=== PATIENT | male | born 1935 | race Caucasian/White ===

== ENCOUNTER 2020-04-03 12:22 | Day surgery (SDC) | payer MEDICARE, BC ==
[2020-04-03] VITALS (7 sets, daily range): BP systolic 131–152; BP diastolic 60–74
[~2020-04-03] VITALS: Ht 177.8 cm; Wt 82.1 kg
[~2020-04-03 12:22] MED LIST: ASPI-611 PO; CEFD300C3 PO; COLC0.6C3 PO; DULO30CA52 PO; FERR-97 PO; GLIM4TAB7 PO; ISOS60TA4 PO; LACT1CAP26 PO; LANS15CA10 PO; LISI1TAB51 PO; METF-950 PO; METO-384 PO; METR-159 PO; SIMV-45 PO
[2020-04-03] MEDS ORDERED: normal saline 1,000 ML IV SCH (12:50)
[2020-04-03] MEDS ORDERED: LORazepam 0.5 MG tablet PO PRN (12:50)
[2020-04-03] MEDS ORDERED: diphenhydrAMINE 25mg capsule PO PRN (12:50)
[2020-04-03] MEDS ORDERED: midazolam 2 mg/2 ml injection ONE (13:55)
[2020-04-03] MEDS ORDERED: iohexol 350MG/ML 100ml bottle IV ONE (13:55)
[2020-04-03] MEDS ORDERED: LIDOcaine 1% (10mg/ml)w/preservative injection 20ml MDV ONE (13:55)
[2020-04-03] MEDS ORDERED: fentaNYL/PF 50MCG/1 ML 2ML syringe ONE (13:55)
[2020-04-03] MEDS ORDERED: heparin 1,000unit/ml 10ml vial 10 ML ONE (14:00)
[2020-04-03] MEDS ORDERED: nitroGLYCERIN-Tridil 50MG/D5W 250 ML IV ONE (14:00)
[2020-04-03] MEDS ORDERED: verapamil 2.5 mg/ml inj IV ONE (14:00)
[2020-04-03] MEDS ORDERED: LISI-604 PO (14:08)
[2020-04-03] MEDS ORDERED: hydrocortisone sod succ/PF 100mg/2ml inj. ONE (14:10)
[2020-04-03] MEDS ORDERED: ISOS60TA4 PO (14:10)
[2020-04-03] MEDS ORDERED: DULO-31 PO (14:12)
[2020-04-03] MEDS ORDERED: COLC0.6T72 PO (14:13)
[2020-04-03] MEDS ORDERED: NITR0.4T51 SL (14:13)
[2020-04-03] MEDS ORDERED: iohexol 350 MG/ML 50ML vial IV ONE ×2 (14:23→14:42)
[2020-04-03] MEDS ORDERED: ondansetron/PF 4mg/2ml inj IV PRN (15:10)
[2020-04-03] MEDS ORDERED: OXAZEpam 15mg capsule PO PRN (15:10)
[2020-04-03] MEDS ORDERED: proCHLORperazine 10 MG/2 ml inj IV PRN (15:10)
== END 2020-04-03 17:00 | disposition home or self-care (01) ==
LOC: SSTAY O 12:22
PROVIDERS: ATTEND Internal Medicine Interventional Cardiology
DX: I34.0 Nonrheumatic mitral (valve) insufficiency (principal); I25.10 Atherosclerotic heart disease of native coronary artery without angina pectoris; E11.40 Type 2 diabetes mellitus with diabetic neuropathy, unspecified; I10 Essential (primary) hypertension; E78.5 Hyperlipidemia, unspecified; Z95.5 Presence of coronary angioplasty implant and graft; M10.9 Gout, unspecified; Z79.84 Long term (current) use of oral hypoglycemic drugs; Z79.82 Long term (current) use of aspirin; Z79.899 Other long term (current) drug therapy; Z88.8 Allergy status to other drugs, medicaments and biological substances; Z87.891 Personal history of nicotine dependence
CPT/HCPCS: 93005; 93458; 99152; C1769; C1894; J1644; J1720; J2001; J2250; J3010; J7030; Q0163; Q9967; 99153; A4620; J3490

== ENCOUNTER 2022-01-27 17:45 | Emergency (ER) | payer MEDICARE, BC ==
[~2022-01-27] VITALS: Ht 175.3 cm; Wt 78.2 kg
[~2022-01-27 17:45] MED LIST changes: -CEFD300C3 PO; -COLC0.6C3 PO; +COLC0.6T72 PO; +DULO-31 PO; -FERR-97 PO; -GLIM4TAB7 PO; -ISOS60TA4 PO; +ISOS60TA71 PO; -LACT1CAP26 PO; -LANS15CA10 PO; +LANS15CA14 PO; -LISI1TAB51 PO; +LISI5TAB22 PO; +METF-1203 PO; -METF-950 PO; -METR-159 PO; +NITR0.4T51 SL
[2022-01-27 19:36] VITALS: BP 149/88
[2022-01-27] MEDS ORDERED: dexamethasone sod phosphate 10mg/ml inj IV STA (19:56)
[2022-01-27] MEDS ORDERED: ondansetron/PF 4mg/2ml inj IV ONE (20:00)
[2022-01-27] MEDS ORDERED: normal saline 1000ML IV soln IVB ONE (20:00)
[2022-01-27 20:17] LABS: BASOPHILS % (AUTO) 0.4 % (0-1); EOSINOPHILS % (AUTO) 0.3 % (0-6); HEMATOCRIT 26.8 % (42.0-52.0); HEMOGLOBIN 9.6 g/dl (14.0-17.9); LYMPHOCYTES # (AUTO) 0.7 X10'3 (1.1-4.8); LYMPHOCYTES % (AUTO) 8.7 % (21-51); MEAN CORPUSCULAR HEMOGLOBIN 31.2 PG (27.0-31.0); MEAN CORPUSCULAR HGB CONC 35.7 g/dL (33.0-36.5); MEAN CORPUSCULAR VOLUME 87.3 FL (78-98); MONOCYTES # (AUTO) 0.8 X10'3 (0-0.9); MONOCYTES % (AUTO) 9.6 % (2-12); NEUTROPHILS # (AUTO) 6.7 X10'3 (1.8-7.7); PLATELET COUNT 168 X10'3 (140-440); RED BLOOD COUNT 3.07 X10'6 (4.70-6.10); RED CELL DISTRIBUTION WIDTH 15.5 % (11.5-14.5); WHITE BLOOD COUNT 8.3 X10'3 (4.5-11.0)
[2022-01-27 20:30] LABS: ALANINE AMINOTRANSFERASE 14 U/L (12-78); ALBUMIN 3.5 G/DL (3.4-5.0); ALBUMIN/GLOBULIN RATIO 0.9 (1.1-1.5); ALKALINE PHOSPHATASE 65 IU/L (46-116); ANION GAP 9 (8-16); ASPARTATE AMINO TRANSFERASE 20 U/L (10-37); BILIRUBIN,TOTAL 0.8 MG/DL (0.1-1.0); BLOOD UREA NITROGEN 24 MG/DL (7-18); BUN/CREATININE RATIO 13.4 (5.4-32.0); CALCIUM 7.6 MG/DL (8.5-10.1); CHLORIDE 100 MMOL/L (99-107); CREATININE 1.79 MG/DL (0.60-1.10); GLUCOSE 144 MG/DL (70-104); POTASSIUM 4.4 MMOL/L (3.5-5.1); SODIUM 138 MMOL/L (135-145); TOTAL CARBON DIOXIDE 28.8 MMOL/L (24-32); TOTAL PROTEIN 7.5 G/DL (6.4-8.2); eGFR 36 ML/MIN
--- NOTE | 2022-01-27 21:29 | NUR ---
IV DC'D PT BEING DISCHARGED DRESSING APPLIED
== END 2022-01-27 21:31 | disposition home or self-care (01) ==
LOC: ER 17:46
DX: M25.572 Pain in left ankle and joints of left foot (principal); R06.02 Shortness of breath; I11.9 Hypertensive heart disease without heart failure; Z79.899 Other long term (current) drug therapy; Z88.6 Allergy status to analgesic agent; Z79.82 Long term (current) use of aspirin
CPT/HCPCS: 36415; 71045; 80053; 83880; 84145; 84484; 85025; 93005; 96374; 96375; 99285; J1100; J2405; J7030

== ENCOUNTER 2022-06-05 04:08 | Emergency (ER) | payer MEDICARE, BC ==
[~2022-06-05] VITALS: Ht 175.3 cm; Wt 68.2 kg
[2022-06-05] MEDS ORDERED: normal saline 1000ML IV soln IVB ONE (05:15)
[2022-06-05 06:30] LABS: BASOPHILS % (AUTO) 0.5 % (0-1); EOSINOPHILS % (AUTO) 0.1 % (0-6); HEMATOCRIT 24.9 % (42.0-52.0); HEMOGLOBIN 8.7 g/dl (14.0-17.9); LYMPHOCYTES # (AUTO) 0.4 X10'3 (1.1-4.8); LYMPHOCYTES % (AUTO) 7.1 % (21-51); MEAN CORPUSCULAR HEMOGLOBIN 29.8 PG (27.0-31.0); MEAN CORPUSCULAR VOLUME 85.3 FL (78-98); MEAN PLATELET VOLUME 6.9 FL (7.4-10.4); MONOCYTES # (AUTO) 0.4 X10'3 (0-0.9); MONOCYTES % (AUTO) 7.2 % (2-12); NEUTROPHILS # (AUTO) 4.3 X10'3 (1.8-7.7); NEUTROPHILS % (AUTO) 85.1 % (42-75); PLATELET COUNT 140 X10'3 (140-440); RED BLOOD COUNT 2.92 X10'6 (4.70-6.10); RED CELL DISTRIBUTION WIDTH 16.1 % (11.5-14.5)
[2022-06-05 06:45] LABS: APTT 40 SECONDS (22-32)
[2022-06-05 06:53] LABS: ALANINE AMINOTRANSFERASE 16 U/L (12-78); ALBUMIN 3.4 G/DL (3.4-5.0); ALBUMIN/GLOBULIN RATIO 0.9 (1.1-1.5); ALKALINE PHOSPHATASE 73 IU/L (46-116); ANION GAP 6 (8-16); ASPARTATE AMINO TRANSFERASE 21 U/L (10-37); BILIRUBIN,TOTAL 0.5 MG/DL (0.1-1.0); BLOOD UREA NITROGEN 21 MG/DL (7-18); BUN/CREATININE RATIO 11.1 (5.4-32.0); CALCIUM 8.1 MG/DL (8.5-10.1); CHLORIDE 99 MMOL/L (99-107); GLUCOSE 201 MG/DL (70-104); POTASSIUM 4.2 MMOL/L (3.5-5.1); SODIUM 136 MMOL/L (135-145); TOTAL CARBON DIOXIDE 30.6 MMOL/L (24-32); TOTAL PROTEIN 7.4 G/DL (6.4-8.2); eGFR 34 ML/MIN
[2022-06-05 07:04] LABS: MAGNESIUM 1.1 MG/DL (1.5-2.4)
[2022-06-05] MEDS ORDERED: PRED20TA PO (07:41)
[2022-06-05] MEDS ORDERED: AZIT-83 PO (07:41)
[2022-06-05 07:54] VITALS: BP 123/71
== END 2022-06-05 07:59 | disposition home or self-care (01) ==
LOC: ER 04:08
DX: J45.901 Unspecified asthma with (acute) exacerbation (principal); Z20.822 Contact with and (suspected) exposure to COVID-19; D64.9 Anemia, unspecified; I11.9 Hypertensive heart disease without heart failure; I50.9 Heart failure, unspecified; J44.9 Chronic obstructive pulmonary disease, unspecified; Z79.899 Other long term (current) drug therapy; Z88.8 Allergy status to other drugs, medicaments and biological substances; Z79.82 Long term (current) use of aspirin; Z79.1 Long term (current) use of non-steroidal anti-inflammatories (NSAID)
CPT/HCPCS: 36415; 71045; 80053; 83605; 83735; 83880; 84145; 85025; 85610; 85730; 87040; 87502; 87503; 87635; 93005; 96360; 99285; C9803; J7030